=== PATIENT | male | born 1955 | race Caucasian/White ===

== ENCOUNTER 2020-12-12 11:30 | Emergency (ER) | payer MEDICARE, OTHER ==
[~2020-12-12] VITALS: Ht 172.7 cm; Wt 69.9 kg
[2020-12-12] MEDS ORDERED: CASIRIVIMAB/IMDEVIMAB 10 ML in SODIUM CHLORIDE 0.9% 100 ML IV ONE (11:45)
== END 2020-12-12 12:54 | disposition home or self-care (01) ==
LOC: ER 11:39
DX: U07.1 COVID-19 (principal); R05.9 Cough, unspecified; I71.9 Aortic aneurysm of unspecified site, without rupture
CPT/HCPCS: 99283; J7050